=== PATIENT | female | born 1945 | race Caucasian/White ===

== ENCOUNTER → 2021-10-12 | Outpatient (CLI) | payer SELFPAY, OTHER ==
--- NOTE | 2021-10-12 09:03 | MRI_ITS ---
ACR Level 3 findings have been noted. An addendum which confirms receipt of the report will follow. EXAM: MR ORBITS WITHOUT AND WITH INTRAVENOUS CONTRAST () CLINICAL INDICATION: OPTIC ATROPHY TECHNIQUE: Multiplanar and multisequence MR images of the orbits without and with intravenous contrast. This report was created using [employer] report [employer] technology. CONTRAST: IV 18ml Dotarem COMPARISON: None. FINDINGS: ORBITS: Unremarkable. Optic globes are unremarkable.. Unremarkable optic nerve sheath and nerves. Unremarkable intraconal and extraconal spaces. Extra-ocular muscles are unremarkable. OPTIC CHIASM: Unremarkable. Unremarkable chiasm and post chiasmatic tracts. SELLA: Unremarkable. Pituitary gland is normal in size and signal. Normal sella Turcica and suprasellar structures. CAVERNOUS SINUSES: Unremarkable. SINUSES: Unremarkable as visualized. Clear. SOFT TISSUES: Unremarkable. Preseptal and superficial soft tissues are unremarkable. Lacrimal glands are unremarkable. VASCULATURE: Unremarkable. Superior ophthalmic veins are symmetric. BRAIN AND EXTRA-AXIAL SPACES: Multiple solid enhancing extra-axial masses consistent with meningioma. The dominant meningioma is along the anterior skull base which extends down to the ethmoid labyrinth. This extends into the suprasellar cistern causing posterior displacement of the optic chiasm and bilateral optic nerve atrophy.. This meningioma from the entrance skull base down to the ethmoid labyrinth measures 5.3 cm x 4.8 cm. The solid enhancing meningioma in the left greater sphenoid wing overlies the left frontal and temporal opercula. It measures 4.2 x 3.1 x 4 cm. The right lateral extension of the meningioma is lobulated in contour. Solid enhancing meningioma in the right prepontine cistern measuring 1.9 x 1 cm. This is causing mild mass effect on the maikel. Smaller solid enhancing meningioma behind the right frontal bone measuring 2.1 x 0.8 cm. No vasogenic edema associated with the meningiomas. T2 FLAIR hyperintensity foci in both cerebral hemispheres are chronic white matter ischemic changes. No communicating or noncommunicating hydrocephalus. MRI/Orbit Face Neck W/WO Contrast IMPRESSION: Multiple solid enhancing meningiomas in the anterior skull base extending down the ethmoid labyrinth, extending into the suprasellar cistern with posterior displacement of the optic chiasm and causing bilateral optic nerve atrophy. This meningioma across the planum sphenoidale extends right laterally with lobulated contour into the right sphenoid wing. A large separate meningioma in the left greater sphenoid wing overlies the left frontal and temporal opercula. Smaller meningioma in the right prepontine cistern. The dimensions are given above. All these meningiomas have no associated vasogenic edema of the brain parenchyma. COMMENT: CT of the maxillofacial with and without contrast will be very helpful for further evaluation. Electronically Signed: Dorian Palafox MD at 11:45 EDT ,
[2021-10-12 09:45] LABS: CREATININE FINGERSTICK < 0.9 mg/dL (0.55-1.02); EGFR FINGERSTICK > 60.0000 mL/min (>60)
== END | disposition home or self-care (01) ==
PROVIDERS: PCP Family Medicine; Visit Provider Ophthalmology
DX: H47.20 Unspecified optic atrophy (principal); H53.40 Unspecified visual field defects; Z85.841 Personal history of malignant neoplasm of brain
CPT/HCPCS: 70543; A9575